=== PATIENT | male | born 1945 | race Caucasian/White ===

== ENCOUNTER 2018-11-13 05:45 | Day surgery (SDC) | payer OTHER ==
[~2018-11-13] VITALS: Ht 175.3 cm; Wt 68.0 kg
[~2018-11-13 05:45] MED LIST: ANTACID325 MG PO; ASPIR 8181 MG PO; COREG6.25 MG PO; LIPITOR 20 MG T20 M1 PO; LOMOTIL TABLET1 EACH PO; PACERONE 200 M200 M1 PO; POTASSIUM GLUCO99 M2 PO; SYNTHROID75 MCG PO; TRADJENTA5 MG PO
[2018-11-13 06:54] VITALS: BP 142/63
--- NOTE | 2018-11-17 06:23 | O ---
[facility] [place] [address] OPERATIVE REPORT Name: JED PIERRE Lyubov Room #: [facility]#: [id number] Admission: 11/13/18 Attend Phys: Eleazar Sierra MD Discharge: 11/13/18 Date of : 45 Report #: [id number] THIS REPORT FOR: //name// CC: MAKENNA Sierra DATE OF SERVICE: 11/13/2018 EP TECH: None. PREOPERATIVE DIAGNOSIS: Bilateral lower lid entropion. POSTOPERATIVE DIAGNOSIS: Bilateral lower lid entropion. OPERATION PERFORMED: Bilateral lower lid entropion repair. ANESTHESIA: Local with IV sedation. COMPLICATIONS: None. INDICATIONS FOR PROCEDURE: This patient has bilateral lower lid entropion with chronic irritation and discharge. The current procedures are being undertaken in order to improve the patient's level of comfort and visual function. Informed consent was obtained to include but not limited to the loss of vision, bleeding, infection, scarring, failure to improve the problem and need for further surgery. DESCRIPTION OF OPERATION: The patient was taken to the operating room, where 2% Xylocaine with epinephrine mixed with equal parts of 0.75% Marcaine with Wydase was administered transcutaneously and transconjunctivally to each lower lid and lateral canthal area. The patient was then prepped and draped in the usual sterile fashion. A Adan clamp was used to clamp the left lateral canthus, following which a sharp canthotomy and cantholysis were performed. Hemostasis was achieved with a monopolar cautery, as it was throughout the case. A tarsal strip was prepared laterally, removing the lash bearing portion of the redundant lid margin and the redundant tarsal plate. A transconjunctival dissection was then undertaken just inferior to the lower border of the tarsal plate. The lower lid retractors were disinserted from the inferior border of the tarsal plate. The lower lid retractors were then advanced and reattached to the anterior surface of the tarsal plate with mattress 5-0 chromic sutures passed transconjunctivally and secured in the infraciliary margin. The tarsal strip was then secured laterally with 2 interrupted 5-0 Prolene sutures. The subcutaneous structures and the skin were then closed with multiple interrupted [address] [address] OPERATIVE REPORT Name: JED PIERRE Lyubov Room #: [facility].#: [id number] Admission: 11/13/18 Attend Phys: Eleazar Sierra MD Discharge: 11/13/18 Date of : 45 Report #: [id number] 6-0 plain gut sutures so the lateral canthal angle was sharply reformed. The wounds were then cleaned and dressed with ophthalmic antibiotic ointment. The patient was then transported to the recovery area, having tolerated the procedure well with no anesthetic or operative complications being noted. <ELECTRONICALLY SIGNED> By: Eleazar Sierra MD 11/17/18 0623 [id number] MD art Henderson
== END 2018-11-13 08:55 | disposition home or self-care (01) ==
LOC: OR 05:45 → TBA 05:49 → OR 08:55
DX: H02.005 Unspecified entropion of left lower eyelid (principal); H02.002 Unspecified entropion of right lower eyelid; I10 Essential (primary) hypertension; E78.00 Pure hypercholesterolemia, unspecified; I48.91 Unspecified atrial fibrillation; F17.220 Nicotine dependence, chewing tobacco, uncomplicated; E11.9 Type 2 diabetes mellitus without complications; I42.9 Cardiomyopathy, unspecified; E03.9 Hypothyroidism, unspecified; N28.9 Disorder of kidney and ureter, unspecified; Z90.49 Acquired absence of other specified parts of digestive tract; Z98.41 Cataract extraction status, right eye; Z98.42 Cataract extraction status, left eye; Z85.038 Personal history of other malignant neoplasm of large intestine; Z95.810 Presence of automatic (implantable) cardiac defibrillator; Z79.01 Long term (current) use of anticoagulants; Z79.82 Long term (current) use of aspirin; Z98.890 Other specified postprocedural states; Z79.899 Other long term (current) drug therapy
CPT/HCPCS: 50010; 50101; 50386; 50398; 51636; 56527; 56531; 62110; 62850; 70005